=== PATIENT | female | born 2000 | race Caucasian/White ===

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

== ENCOUNTER → 2022-03-20 16:20 | Outpatient (CLI) | payer BC, SELFPAY ==
--- NOTE | 2022-03-20 16:25 | DI.US.S_ITS ---
PROCEDURE: US PELVIC COMPLETE INDICATIONS: Check IUD placement TECHNIQUE: Real-time scanning was performed of the pelvic organs, with image documentation. Additional endovaginal scanning was necessary due to incomplete visualization of the adnexal and endometrial structures by transabdominal scanning. COMPARISON: None. FINDINGS: Uterus: Uterus is anteverted and normal in size at 8.3 x 3.0 x 4.1 cm. The myometrium is homogeneous. The endometrium measures 3.1 mm combined thickness. Intrauterine device in expected position. Ovaries: Dominant right follicular cyst measuring 2.3 cm; otherwise ovaries are normal. No adnexal masses. Other: No pathologic free abdominal or pelvic fluid. IMPRESSION: Intrauterine device in expected position. We strive to produce accurate, complete, and clear reports of imaging services. To assist us in improving patient care, this report was composed using standard report templates and voice recognition software. Therefore, it may contain abnormal punctuation, insertions and/or omissions. Occasional wrong-word or sound-alike substitutions may occur. Though we review the report and make efforts to correct it, we do recommend that the report be read carefully in proper context to recognize any text inaccuracies. Dictated by: Jonatan BREEN Interpreted: Rachell Brooks MD on 03/20/2022 at 17:07 Transcribed by: TRINITY on 03/20/2022 at 17:08 Approved by: Rachell Brooks M.D. on 03/22/2022 at 7:35
== END ==
PROVIDERS: PCP Pediatrics; Referring Provider Physician Assistant Medical; Visit Provider Physician Assistant Medical
DX: N92.0 Excessive and frequent menstruation with regular cycle (principal); Z30.431 Encounter for routine checking of intrauterine contraceptive device; R10.9 Unspecified abdominal pain
CPT/HCPCS: 76830; 76856